=== PATIENT | male | born 1970 | race African-American/Black ===

== ENCOUNTER 2018-10-22 11:56 | Outpatient (CLI) | payer BC ==
--- NOTE | 2018-10-22 14:11 | RAD ---
SACRUM AND COCCYX: Date: 10/22/18 HISTORY: Coccyx pain. FINDINGS: No evidence of fracture. There is widening and increased lucency seen in a coccygeal vertebral segmen t of uncertain significance. Since there is unexplained pain at this region, recommend further evalua tion with CT or MRI to assess soft tissues at this location. IMPRESSION: Widening of an intervertebral space and bony irregularity in a coccygeal vertebra of uncertain signif icance. Recommend further evaluation with CT to better assess bones and soft tissues at this location . POS: OFF
== END 2018-10-22 11:57 | disposition home or self-care (01) ==
LOC: BICRAD 11:56
PROVIDERS: ATTEND Family Medicine
DX: M53.3 Sacrococcygeal disorders, not elsewhere classified (principal)
CPT/HCPCS: 72220

== ENCOUNTER 2018-11-07 13:29 | Outpatient (CLI) | payer BC ==
--- NOTE | 2018-11-07 14:51 | CT ---
CT lumbar spine and sacral noncontrast HISTORY: Coccygeal pain. Abnormal radiographs. COMPARISON: Radiographs from 10/22/2018. FINDINGS: There are 5 lumbar type vertebrae. Pedicles and pars interarticularis are intact. Discogeni c endplate changes at the L5-S1 level with endplate irregularity involving the adjacent superior and inferior endplates. Minimal disc bulges at each level. Mild osteophytosis of the facets. Mild wily noses of the left neural foramina at the L4-5 and L5-S1 levels and the right neural foramen at the L5-S1 level. No focal disc herniation. Between the first and second coccygeal segments, there is segmentation and separation by approximatel y 0.8 cm and irregularity of the adjacent endplates. Small amount of soft tissue/fluid density with minimal expansion. Subtle irregularity within the adjacent fat without a well-defined fluid collectio n. No aggressive osseous destruction is reliably demonstrated. IMPRESSION: CT confirms abnormality at the coccygeal 1-2 interspace. No definite fluid collection or aggressive osseous destruction, although there is some soft tissue prominence and endplate irregularity. Given that pain to this area is the original indicator, further evaluation is warranted to look for i nflammatory cause, possibly infection. Please consider MRI of the sacrum, with and without gadolinium contrast, for better characterization.
== END 2018-11-07 13:30 | disposition home or self-care (01) ==
LOC: BICCT 13:29
PROVIDERS: ATTEND Family Medicine
DX: M53.3 Sacrococcygeal disorders, not elsewhere classified (principal)
CPT/HCPCS: 72131

== ENCOUNTER 2018-12-03 14:32 | Outpatient (CLI) | payer BC ==
--- NOTE | 2018-12-03 16:36 | MRI ---
MRI lumbar spine noncontrast: HISTORY: Lumbar radiculopathy. Back pain times a few years. COMPARISON: None FINDINGS: Type I-type II Modic changes at L5-S1. Otherwise, appropriate T1 marrow signal intensity lumbar verte brae. No fracture. No significant STIR hyperintensity to suggest vertebral body edema or ligamentous injury Appropriate signal intensity of the paraspinal muscles and visualized solid organs Conus medullaris terminates at the L1-L2 disc space T12-L1:Adequate disc hydration. No significant central canal stenosis or neural foraminal narrowing L1-L2:Adequate disc hydration. No significant canal stenosis or neural foraminal narrowing L2-L3:Adequate disc hydration. No significant central canal stenosis or neural foraminal narrowing L3-L4:Adequate disc hydration. Minimal flattening the ventral thecal sac secondary to a broad-based d isc bulge. Minimal ligament flavum thickening and facet hypertrophy. No significant central canal stenosis or neural foraminal narrowing. L4-L5:Minimal disc desiccation without significant loss of disc space height. Generalized disc bulge abuts and flattens the ventral thecal sac. No significant central canal stenosis. Bilaterally, neural foramina are patent L5-S1:No significant loss of disc space height. Minimal disc desiccation. Generalized disc bulge abut s the thecal sac. Disc material abuts but does not obscure the traversing S1 nerve root. No significant central canal stenosis. There is bilateral facet hypertrophy. Moderate right and mild to moderate left neural foraminal narrowing. IMPRESSION: Degenerative changes lumbar spine as described above. No evidence of high-grade central canal stenosi s. Transcribed Date/Time: 12/03/2018 6:34 PM
--- NOTE | 2018-12-03 19:15 | MRI ---
MRI OF PELVIS PERFORMED WITH AND WITHOUT CONTRAST ENHANCEMENT: 12/03/18 HISTORY: Evaluation for sacrococcygeal abscess. COMPARISON: MRI study of 12/03/18. CT study of 11/07/18, both of the lumbar spine and a sacrum and coccyx plain catina m which was performed 10/22/18. The visualized intrapelvic contents appear unremarkable with some minimal sigmoid diverticulosis. No pelvic lymphadenopathy or mass. Modic type changes involving the inferior end plate of L5 at the L5-S1 level are noted. The coccyx region once again shows an area of widening between two of the coccygeal segments. This hidalgo s been seen on the plain film and CT study and this is a stable finding. There is minimal edema ge e in this region which appears mainly related to the soft tissue although there could be some minima l edema change associated with the bone at this level. I would favor that this is more likely reactiv e change than an osteomyelitis. There is no signs of any pelvic abscess. No inflammatory change withi n the soft tissues. IMPRESSION: Nonspecific widening to the distance between two of the coccygeal segments that is stable as compared to previous exams. There is some minimal edema change and enhancement associated with this. I would favor that this may just represent some reactive change possibly related to some mild instability. Th ere is no pelvic abscess and I would not favor that these changes are related to osteomyelitis althou gh a low grade indolent osteomyelitis is not totally excluded as a possibility. POS: MARCUS
== END 2018-12-03 14:33 | disposition home or self-care (01) ==
LOC: TBSIIMAG 14:32
PROVIDERS: ATTEND Anesthesiology Pain Medicine
DX: M47.26 Other spondylosis with radiculopathy, lumbar region (principal); M53.3 Sacrococcygeal disorders, not elsewhere classified
CPT/HCPCS: 72148; 72197

== ENCOUNTER 2019-09-29 07:58 | Outpatient (CLI) | payer BC ==
--- NOTE | 2019-09-29 08:45 | CT ---
CT ABDOMEN NONCONTRAST CT PELVIS NONCONTRAST: (Urolithiasis protocol) DATE: 09/29/2019 HISTORY: 49-year-old male with hematuria TECHNIQUE: IV injection of iodinated contrast media: None Oral contrast media: None FINDINGS: Other than for urolithiasis, the lack of IV and oral contrast limits the evaluation. Liver: No contour abnormalities. Spleen: No splenomegaly. Pancreas: No contour abnormalities. Adrenals: No mass. Kidneys: No nephrolithiasis or overt hydronephrosis. Ureters: No calculi. Bladder: No calculi. Abdominal aorta: No aneurysm. Small bowel: No dilation. Colon: No adjacent fat stranding. Appendix: No dilation or adjacent fat stranding. Free air: None Free fluid: None IMPRESSION: 1. No urolithiasis or obstructive uropathy 2. No acute findings, within the limitations of a noncontrast scan.
== END 2019-09-29 07:59 | disposition home or self-care (01) ==
LOC: CT 07:58
PROVIDERS: ATTEND Family Medicine
DX: R31.9 Hematuria, unspecified (principal)
CPT/HCPCS: 74176

== ENCOUNTER 2020-01-06 19:00 | Inpatient (IN) | payer BC, OTHER ==
[~2020-01-06 19:00] MED LIST: Iopamidol-370 76% 500 ML 1 ML ONE
[2020-01-06] MEDS ORDERED: Meclizine HCl 25 MG TAB ONE (19:49)
[2020-01-06] MEDS ORDERED: Diazepam 5 MG TAB ONE (19:53)
[2020-01-06 20:03] LABS: #Basophils 0.1 thou/uL (0.0-0.2); #Lymphocytes 3.4 thou/uL (1.20-3.40); #Monocytes 0.7 thou/uL (0.11-0.59); #Neutrophils 7.9 thou/uL (1.40-6.50); %Basophils 0.6 % (0.0-1.0); %Eosinophils 0.2 % (0.0-10.0); %Lymphocytes 28.1 % (21.0-51.0); %Monocytes 5.6 % (0.0-10.0); %Neutrophils 65.6 % (42.0-75.0); Mean Corpuscular HGB CONC 33.5 g/dL (32.0-36.0); Mean Corpuscular Hemoglobin 28.7 pg (27.0-31.0); Mean Corpuscular Volume 85.6 fL (78.0-98.0); Mean Platelet Volume 8.6 fL (7.4-10.4); Platelet Count 199 thou/uL (130-400); Red Blood Cell (RBC) Count 5.23 mill/uL (4.70-6.10); White Blood Cell (WBC) Count 12.1 thou/uL (4.8-10.8)
[2020-01-06 20:10] LABS: INR-International Normal Ratio 2.2; PTT 31.6 sec (22.9-36.1); Prothrombin Time 24.4 sec (12.0-14.7)
[2020-01-06 20:17] LABS: ALT (SGPT) 16 U/L (8-55); AST (SGOT) 19 U/L (5-34); Albumin 4.4 g/dL (3.5-5.0); Alkaline Phosphatase 43 U/L (40-110); Anion Gap 12 mmol/L (10-20); BUN (Urea Nitrogen) 16 mg/dL (8.9-20.6); Bilirubin, Total 0.5 mg/dL (0.2-1.2); Calc. Creatinine Clearance 0 mL/min (70-130); Carbon Dioxide 26 mmol/L (22-29); Chloride 105 mmol/L (98-107); Estimated GFR-MDRD 82; Globulin 3.7 g/dL (2.4-3.5); Glucose 131 mg/dL (70-105); Potassium 3.9 mmol/L (3.5-5.1); Protein, Total 8.1 g/dL (6.0-8.3); Sodium 139 mmol/L (136-145)
--- NOTE | 2020-01-06 21:08 | CT ---
Head CT without contrast: CT angiogram head CT angiogram neck: 01/06/2020 HISTORY: Peripheral vertigo, prior stroke TECHNIQUE: Axial CT imaging at 5 mm intervals from vertex through skull base without contrast. Then, axial CT imaging at 1.25 mm intervals obtained from the vertex through the lung apices with IV contrast using a CT angiogram protocol. Coronal and sagittal 3-D reformatted imaging obtained. FINDINGS: The visualized lung apices are unremarkable. The noncontrast enhanced head CT demonstrates no intracranial hemorrhage, midline shift, mass effect, or ventricular enlargement. The visualized paranasal sinuses and mastoid air cells appear well aerated. The retroantral fat, parapharyngeal fat, parotid glands, and submandibular glands appear grossly unre markable. Tonsillar pillars, epiglottis and preepiglottic fat, hyoid bone, thyroid cartilage, cricoid cartilage, and thyroid gland appear grossly unremarkable. Body habitus limits assessment at t he thoracic inlet. Origin of the innominate artery grossly unremarkable as is the origin of the right subclavian and right common carotid artery. The origin of the left common carotid artery and le ft subclavian artery is limited on the basis of artifact. Artifact limits assessment of the bilateral vertebral artery origins. Bilateral vertebral arteries are patent. On the basis of NASCET c riteria there is no hemodynamically significant stenosis involving the internal carotid artery or the common carotid artery on either side. The basilar artery and its branches appear patent with no saccular aneurysm, high-grade stenosis, or vascular occlusion involving the posterior circulation. The M1 segment, the A1 segment, the MCA bifurcation, the distal MCA branches, and the distal LETICIA bran ches appear grossly unremarkable. No saccular aneurysm, high-grade stenosis, or vascular occlusion is seen involving the anterior circulation. No lymphadenopathy is noted within the neck. Review of the osseous structures demonstrates no worrisome lytic or blastic bone lesions. IMPRESSION: No acute findings are noted on noncontrast enhanced head CT, CT angiogram of the head, or CT angiogram of the neck.
[2020-01-06] MEDS ORDERED: Ondansetron ODT 4 MG TAB ONE (22:02)
[2020-01-06] MEDS ORDERED: Aspirin Chewable 81 MG TAB ONE (22:02)
[2020-01-06 23:20] LABS: Troponin I Less than 0.010 ng/mL (< 0.028)
[2020-01-06] MEDS ORDERED: Guaifenesin DM 100-10/5 ML UDCUP PO PRN (23:22)
[2020-01-06] MEDS ORDERED: Ondansetron PF 4 MG/2 ML Vial IVP PRN (23:22)
[2020-01-06] MEDS ORDERED: Promethazine HCl 12.5 MG in Sodium Chloride 0.9% 50 ML IVPB PRN (23:22)
[2020-01-06] MEDS ORDERED: hydrALAZINE 20 MG/ML VIAL SLOW IVP PRN (23:24)
[2020-01-06] MEDS ORDERED: Labetalol HCl 100 MG/20 ML VIAL SLOW IVP PRN (23:24)
--- NOTE | 2020-01-06 23:27 | PDOC.HHP ---
Hospitalist HPI - History of Present Illness Vertigo History of Present Illness: Patient is a 49 year old male with PMH pulmonary embolism in on chronic coumadin, CVA 7 years ago who presents to ED for 1 day of vertigo and nystagmus. At work today, he leaned his head back in chair and developed continuous vertigo which has not abated since, this was at 11 AM, dizziness is described as a sense of rotation and is provoked by tilting his head backwards but does not completely resolve when sitting still. No exacerbation of dizziness with turning head to the left or right. Patient states that this does feel like his prior peripheral vertigo. Patient states sore throat in association but had a negative rapid strep at the outside hospital. He went to urgent care and was referred to ED, here he was noted to have leftward nystagmus which drastically worsened when patient was in CT scanner. CT and CTA head unremarkable. Patient given zofran and meclizine with partial improvement, also got valium and ASA. Patient has a history of CVA 7 years ago, presented with facial droop which improved over se veral weeks and does not have residual deficits. He does not take an aspirin or a statin, but does take coumadin for history of PE in , INR 2.2 here. Patient to be admitted for CVA rule out. Hospitalist ROS - Review of Systems Constitutional: denies: fever, chills, sweats, weakness, malaise, other Eyes: denies: pain, vision change, conjunctivae inflammation, eyelid inflammation, redness, other ENT: denies: ear pain, ear discharge, nose pain, nose discharge, nose congestion, mouth pain, mouth swelling, throat pain, throat swelling, other Respiratory: denies: cough, dry, shortness of breath, hemoptysis, SOB with excertion, pleuritic pain, sputum, wheezing, other Cardiovascular: denies: chest pain, palpitations, orthopnea, paroxysmal noc. dyspnea, edema, light headedness, other Gastrointestinal: denies: nausea, vomiting, abdominal pain, diarrhea, constipation, melena, hematochezia, other Genitourinary: denies: dysuria, frequency, incontinence, hematuria, retention, other Musculoskeletal: denies: neck pain, shoulder pain, arm pain, back pain, hand pain, leg pain, foot pain, other Skin: denies: rash, lesions, dusty, bruising, other Neurological: reports: other (vertigo). denies: weakness, numbness, incoordination, change in speech, confusion, seizures All other systems reviewed; all pertinent +/- noted in HPI/Subj - Medication Medications: coumadin, see ED documents for dosing and timing Hospitalist History - Past Medical History Other Medical History: CVA, PE, DVT - Past Surgical History Other Surgical History: R knee and hand and ankle surgeries - Family History Family History: reports: no pertinent history - Social History Alcohol: reports: None Drugs: reports: none - Exam General Appearance: NAD, awake alert Eye: PERRL, anicteric sclera ENT: normocephalic atraumatic, no oropharyngeal lesions, moist mucosa Neck: supple, symmetric, no JVD, no thyromegaly, no lymphadenopathy, no carotid bruit Heart: RRR, no murmur, no gallops, no rubs, normal peripheral pulses Respiratory: CTAB, no wheezes, no rales, no ronchi, normal chest expansion, no tachypnea, normal percussion Gastrointestinal: soft, non-tender, non-distended, normal bowel sounds, no palpable masses, no hepatomegaly, no splenomegaly, no bruit Extremities: no cyanosis, no clubbing, no edema Skin: normal turgor, no lesions, no rashes Neurological: normal sensation to touch, no weakness, no focal deficits, no new deficit Neurological - other findings: nystagmus w/ leftward gaze Musculoskeletal: normal tone, normal strength, no muscle wasting Psychiatric: normal affect, normal behavior, A&O x 3 Hospitalist Results - Labs Result Diagrams: 01/06/20 19:41 01/06/20 19:41 Lab results: WBC 12.1 thou/uL (4.8-10.8) H 01/06/20 19:41 Hgb 15.0 g/dL (14.0-18.0) 01/06/20 19:41 Hct 44.8 % (42.0-52.0) 01/06/20 19:41 MCV 85.6 fL (78.0-98.0) 01/06/20 19:41 Plt Count 199 thou/uL (130-400) 01/06/20 19:41 Neutrophils % 65.6 % (42.0-75.0) 01/06/20 19:41 Sodium 139 mmol/L (136-145) 01/06/20 19:41 Potassium 3.9 mmol/L (3.5-5.1) 01/06/20 19:41 Chloride 105 mmol/L (98-107) 01/06/20 19:41 Carbon Dioxide 26 mmol/L (22-29) 01/06/20 19:41 BUN 16 mg/dL (8.9-20.6) 01/06/20 19:41 Creatinine 1.14 mg/dL (0.7-1.3) 01/06/20 19:41 Glucose 131 mg/dL (70-105) H 01/06/20 19:41 Calcium 9.0 mg/dL (7.8-10.44) 01/06/20 19:41 Total Bilirubin 0.5 mg/dL (0.2-1.2) 01/06/20 19:41 AST 19 U/L (5-34) 01/06/20 19:41 ALT 16 U/L (8-55) 01/06/20 19:41 Alkaline Phosphatase 43 U/L (40-110) 01/06/20 19:41 Troponin I Less than 0.010 ng/mL (< 0.028) 01/06/20 22:49 Serum Total Protein 8.1 g/dL (6.0-8.3) 01/06/20 19:41 Albumin 4.4 g/dL (3.5-5.0) 01/06/20 19:41 Additional comment: VITAL SIGNS Wed Jan 06, 2020 23:07 NAYLA Colón Kristin BP: 172/95 Pulse: 98 Resp: 16 Temp: 98.9 (Oral) Pain: 0 O2 sat: 100 on (Room Air) Time: 01/06/2020 23:07. - EKG Interpretation EK BPM, NSR, no acute ST changes or AVB Hospitalist H&P A/P - Plan Plan: Patient is a 49 year old male with PMH pulmonary embolism in on chronic coumadin, CVA 7 years ago who presents to ED for 1 day of vertigo and nystagmus. # nystagmus # history of CVA continuous vertigo x 1 day, positional, leftward nystagmus and one time rightward nystagmus observed on repeat physical exams. in ED, CT and CTA head unremarkable. Patient given zofran, meclizine, valium and ASA w/ partial improvement, he has a history of CVA 7 years ago (facial droop as symptom, no residual deficits). He does not take an aspirin or a statin, but does take coumadin for history of PE in , INR 2.2 here. Patient to be admitted for CVA rule out. - admit to stroke unit - stroke workup including MRI brain, rehab consult, monitor for arrhythmia on telemetry, echo ordered, lipid panel - continue meclizine, phenergan, zofran for symptom control - ASA/statin - may be able to do outpatient vestibular rehab, follow OT consult/rehab consult # history of PE/DVT - continue coumadin, daily INR, pharmacy consult for dosing # HTN - permissive HTN for now, monitor BP DVt/GI ppx
[2020-01-06] MEDS ORDERED: Electrolyte Replacement Protoc 1 EACH EACH FS SCH (23:30)
[2020-01-07 01:27] VITALS: BMI 35.7
[2020-01-07 02:27] LABS: Troponin I 0.012 ng/mL (< 0.028)
[2020-01-07 04:44] LABS: #Basophils 0.1 thou/uL (0.0-0.2); #Lymphocytes 3.4 thou/uL (1.20-3.40); #Monocytes 0.5 thou/uL (0.11-0.59); #Neutrophils 4.4 thou/uL (1.40-6.50); %Basophils 0.7 % (0.0-1.0); %Eosinophils 0.2 % (0.0-10.0); %Lymphocytes 40.7 % (21.0-51.0); %Monocytes 6.4 % (0.0-10.0); Hemoglobin 15.2 g/dL (14.0-18.0); Mean Corpuscular HGB CONC 32.9 g/dL (32.0-36.0); Mean Corpuscular Hemoglobin 28.5 pg (27.0-31.0); Mean Corpuscular Volume 86.4 fL (78.0-98.0); Mean Platelet Volume 8.7 fL (7.4-10.4); Platelet Count 184 thou/uL (130-400); RBC Distribution Width 13.1 % (11.5-14.5); Red Blood Cell (RBC) Count 5.34 mill/uL (4.70-6.10); White Blood Cell (WBC) Count 8.5 thou/uL (4.8-10.8)
[2020-01-07 05:01] LABS: INR-International Normal Ratio 2.2; Prothrombin Time 24.2 sec (12.0-14.7)
[2020-01-07 05:10] LABS: Anion Gap 14 mmol/L (10-20); BUN (Urea Nitrogen) 14 mg/dL (8.9-20.6); Calc. Creatinine Clearance 206 mL/min (70-130); Carbon Dioxide 24 mmol/L (22-29); Cardiac Risk 4.4 (Less than 4.5); Chloride 105 mmol/L (98-107); Cholesterol 221 mg/dl (< 200 Desired); Estimated GFR-MDRD Greater than 90; Glucose 111 mg/dL (70-105); HDL Cholesterol 50 mg/dL (>60 Neg Risk); LDL Cholesterol, Calculated 156 mg/dL; Magnesium 1.9 mg/dL (1.6-2.6); Sodium 139 mmol/L (136-145); Triglycerides 74 mg/dL (Less than 150)
[2020-01-07] MEDS ORDERED: Magnesium 2 GM/50 ML 2 GM in Premix Bag 1 BAG IVPB SCH (06:00)
--- NOTE | 2020-01-07 09:09 | MRI ---
MRI BRAIN WITHOUT CONTRAST: HISTORY: Vertigo, dizziness COMPARISON: 07/17/2029 CORRELATION: CT scan from 01/06/2020. FINDINGS: No restricted diffusion is seen. The ventricular size is appropriate and the basilar cisterns are pat ent. No evidence of acute infarct, hemorrhage, midline shift or abnormal extra-axial fluid collections is seen. The visualized paranasal sinuses and mastoid air cells are well-aerated. IMPRESSION: No evidence of acute intracranial process.
[2020-01-07] MEDS: Famotidine 20 MG TAB PO SCH ×2 (09:27→21:07)
[2020-01-07] MEDS: Aspirin 81 mg Enteric Coated Tablet PO SCH (09:27)
--- NOTE | 2020-01-07 13:21 | CON ---
NEUROLOGY CONSULTATION DATE OF CONSULTATION: 01/07/2020 REASON FOR CONSULTATION: TIA/vertigo. HISTORY OF PRESENT ILLNESS: Mr. Ramos is a 49-year-old male with medical history significant for pulmonary embolism in 1989, on chronic Coumadin therapy, with prior CVA 7 years ago, presented to the emergency room with 1-day history of vertigo and nystagmus. Per the patient, he was at work, and he leaned his head back in the chair and felt as if his head is tilted backwards and unable to resolve the dizziness. The patient did not have any feeling like this before in his life He went to the Urgent Care to get a stress test, which was negative at the outside hospital. Then, he was referred to the emergency room where he was noted to have nystagmus on the left lateral gaze, which worsened and the dizziness worsened when the patient was in the CT scanner. CT of the head was done, which was unremarkable for acute intracranial pathology. CT of the head and neck was also unremarkable for hemodynamically significant stenosis. He was given Zofran, meclizine, with partial improvement, and also got aspirin and Valium. He was admitted for stroke rule out. The patient denies focal weakness, focal paresthesias, problems with speech or swallowing, shortness of breath, nausea, vomiting, dysuria, neck pain, or headache associated with the episode. Then, his symptoms improved with meclizine. REVIEW OF SYSTEMS: All 14 systems were reviewed and were negative except pertinent positives mentioned in the HPI. MEDICATION: Coumadin. PAST MEDICAL HISTORY: Prior CVA with no residual side effects. Pulmonary embolism in 1989 and on chronic Coumadin for DVT. PAST SURGICAL HISTORY: Right knee and right ankle surgeries. FAMILY HISTORY: No family history of stroke. SOCIAL HISTORY: Denies smoking, alcohol, or illegal drug use. ALLERGIES: NKDA - Exam VITAL SIGNS: Blood pressure 172/95, pulse 98, respiratory rate 16 General Appearance: NAD, awake alert Eye: PERRL, anicteric sclera ENT: normocephalic atraumatic, no oropharyngeal lesions, moist mucosa Neck: supple, symmetric, no JVD, no thyromegaly, no lymphadenopathy, no carotid bruit Heart: RRR, no murmur, no gallops, no rubs, normal peripheral pulses Respiratory: CTAB, no wheezes, no rales, no ronchi, normal chest expansion, no tachypnea, normal percussion Gastrointestinal: soft, non-tender, non-distended, normal bowel sounds, no palpable masses, no hepatomegaly, no splenomegaly, no bruit Extremities: no cyanosis, no clubbing, no edema Skin: normal turgor, no lesions, no rashes Neurological: Mental status, the patient is alert and oriented to person, place, and time. Recent and remote memory intact. Fund of knowledge is appropriate. Speech is clear. Cranial nerves 2 through 12 intact. Motor, muscle tone and bulk are normal. Strength 5/5 bilaterally. Sensory intact. Cerebellar, finger-nose testing intact. Gait deferred due to the patient's safety reasons. . DATA REVIEWED: I reviewed the labs, which was significant for hyperglycemia 131. EKG showed normal. I reviewed the CT scan, which was negative for acute intracranial pathology. 01/06/20 19:41 Lab results: WBC 12.1 thou/uL (4.8-10.8) H 01/06/20 19:41 Hgb 15.0 g/dL (14.0-18.0) 01/06/20 19:41 Hct 44.8 % (42.0-52.0) 01/06/20 19:41 MCV 85.6 fL (78.0-98.0) 01/06/20 19:41 Plt Count 199 thou/uL (130-400) 01/06/20 19:41 Neutrophils % 65.6 % (42.0-75.0) 01/06/20 19:41 Sodium 139 mmol/L (136-145) 01/06/20 19:41 Potassium 3.9 mmol/L (3.5-5.1) 01/06/20 19:41 Chloride 105 mmol/L (98-107) 01/06/20 19:41 Carbon Dioxide 26 mmol/L (22-29) 01/06/20 19:41 BUN 16 mg/dL (8.9-20.6) 01/06/20 19:41 Creatinine 1.14 mg/dL (0.7-1.3) 01/06/20 19:41 Glucose 131 mg/dL (70-105) H 01/06/20 19:41 Calcium 9.0 mg/dL (7.8-10.44) 01/06/20 19:41 Total Bilirubin 0.5 mg/dL (0.2-1.2) 01/06/20 19:41 AST 19 U/L (5-34) 01/06/20 19:41 ALT 16 U/L (8-55) 01/06/20 19:41 Alkaline Phosphatase 43 U/L (40-110) 01/06/20 19:41 Troponin I Less than 0.010 ng/mL (< 0.028) 01/06/20 22:49 Serum Total Protein 8.1 g/dL (6.0-8.3) 01/06/20 19:41 Albumin 4.4 g/dL (3.5-5.0) 01/06/20 19:41 ASSESSMENT AND PLAN: 49 year old with dizziness. CT of the head and neck was also unremarkable. MRI of the brain reviewed, which was negative for acute intracranial pathology most likely vertigo. However, TIA cannot be completely ruled out because of the risk factors. Continue aspirin and high-intensity statin for secondary stroke prevention. Check hemoglobin A1c, fasting lipid panel, and TSH in telemetry. 2D echo to evaluate for left ventricular ejection fraction. Consider vestibular PT/OT/Speech. We will continue Coumadin and daily INR. Strict control of blood pressure and blood glucose. Neuro checks every 4 hours. Continue home medications. Continue medical management per primary team, PT/OT/Speech. Consider vestibular PT as outpatient if the condition persists. We will continue to follow. Plan discussed with the patient, and the nursing staff. Thank you for the consult. Job ID: [id number] MTDD
[2020-01-07] MEDS ORDERED: Warfarin Sodium 10 MG TAB PO SCH (20:00)
[2020-01-07] MEDS ORDERED: Atorvastatin Calcium 40 MG TAB PO SCH (21:00)
[2020-01-07] MEDS ORDERED: Enoxaparin Sodium 40 MG/0.4 ML SYRINGE SC SCH (21:00)
--- NOTE | 2020-01-07 21:21 | PDOC.HOSPP ---
- Subjective Encounter Date: 01/07/20 Encounter Time: 13:10 Subjective: Patient was seen and examined in bed. Dizziness is improved but still lingering. Denies any headache chest pain shortness of breath. - Objective Vital Signs & Weight: Vital Signs (12 hours) Temp Pulse Resp BP BP BP Pulse Ox 01/07/20 15:24 98.1 F 67 16 166/100 H 97 01/07/20 11:32 97.8 F 65 16 158/96 H 97 01/07/20 10:45 154/113 H 167/106 H Weight Weight 333 lb 12.8 oz Result Diagrams: 01/07/20 04:34 01/07/20 04:34 Hospitalist ROS - Medication Medications: Active Medications Generic Name Dose Route Start Last Admin Trade Name Freq PRN Reason Stop Dose Admin Aspirin 81 mg 01/07/20 09:00 01/07/20 09:27 Aspirin 81 Mg Enteric Coated Tablet PO 81 mg DAILY JEANNE Administration Atorvastatin Calcium 40 mg 01/07/20 21:00 01/07/20 21:07 Atorvastatin Calcium 40 Mg Tab PO 40 mg HS JEANNE Administration Famotidine 20 mg 01/07/20 09:00 01/07/20 21:07 Famotidine 20 Mg Tab PO 20 mg BID JEANNE Administration Sodium Chloride 10 ml 01/06/20 23:24 01/07/20 21:07 Flush - Normal Saline 10 Ml Syringe IVF 10 ml PRN PRN Administration Saline Flush Warfarin Sodium 10 mg 01/07/20 20:00 01/07/20 21:06 Warfarin Sodium 10 Mg Tab PO 01/07/20 22:00 10 mg 2000 JEANNE Administration - Exam Heart - other findings: S1-S2 present and normal. No murmurs gallops or rubs. Respiratory - other findings: Air entry adequate bilaterally. No rhonchi or rales. Gastrointestinal - other findings: Soft, nontender, bowel sounds present. No organomegaly Extremities - other findings: No edema Hosp A/P - Plan This is a 49-year-old male patient with a history of chronic pulmonary embolism on Coumadin who is an admission on account of progressive right eye ago. Vitiligo Concerning for possible stroke. CT scan and MRI of the brain revealed no acute events No lesions noted on MRI Neurology consultprescribe symptomatic treatment for vertigo and physical security manager apy on discharge. Continue on meclizine and promethazine PT OT on board. TIA Cannot be excluded given history We will continue stroke prophylaxis with aspirin and atorvastatin Hypertension Blood pressure is significantly above 150 systolic. Initial permissive hypertension on account of possible stroke We will start low-dose amlodipine Possible aortic aneurysm. Echocardiogram revealed dilated aortic sinus CT scan for further evaluation suggested Cardiology consulted in a.m. for further evaluation. Pulmonary evaluation INR 2.2 Continue on warfarin. VTE prophylaxistherapeutic on warfarin
[2020-01-08 05:09] LABS: INR-International Normal Ratio 2.1; Prothrombin Time 23.2 sec (12.0-14.7)
[2020-01-08 05:20] LABS: Anion Gap 14 mmol/L (10-20); BUN (Urea Nitrogen) 15 mg/dL (8.9-20.6); Calc. Creatinine Clearance 187 mL/min (70-130); Calcium 8.7 mg/dL (7.8-10.44); Carbon Dioxide 24 mmol/L (22-29); Chloride 106 mmol/L (98-107); Estimated GFR-MDRD Greater than 90; Glucose 103 mg/dL (70-105); Potassium 3.9 mmol/L (3.5-5.1); Sodium 140 mmol/L (136-145)
[2020-01-08] MEDS: Acetaminophen 325 MG TAB PO PRN (08:32)
[2020-01-08] MEDS: Aspirin 81 mg Enteric Coated Tablet PO SCH (08:32)
[2020-01-08] MEDS: Amlodipine 5 MG TAB PO SCH (08:33)
[2020-01-08] MEDS: Meclizine HCl 25 MG TAB PO PRN ×2 (08:33→20:13)
[2020-01-08] MEDS: Famotidine 20 MG TAB PO SCH ×2 (08:34→20:14)
[2020-01-08] MEDS ORDERED: Amlodipine 5 MG TAB PO SCH (09:00)
[2020-01-08] MEDS ORDERED: Iopamidol-370 76% 500 ML 1 ML ONE (10:04)
[2020-01-08 12:46] LABS: SARS-CoV-2 MS2 Positive; SARS-CoV-2 N Gene Negative; SARS-CoV-2 S Gene Negative; SARS-CoV-2 by NAA Not Detected (NotDetected); SARS-CoV-2 orf1ab Negative
--- NOTE | 2020-01-08 12:53 | PDOC.NEUPN ---
- Subjective Encounter Date: 01/08/20 Subjective: Patient feels better. Dizziness improved today. - Objective Vital Signs & Weight: Vital Signs (12 hours) Temp Pulse Resp BP BP Pulse Ox 01/08/20 12:16 152/106 H 01/08/20 11:59 97.7 F 69 16 217/139 H 95 01/08/20 09:42 163/108 H 01/08/20 08:33 64 168/120 H 01/08/20 08:00 96 01/08/20 07:50 99 F 64 12 168/120 H 96 01/08/20 04:30 97.7 F 69 13 149/108 H 94 L Weight Weight 333 lb 12.8 oz Result Diagrams: 01/07/20 04:34 01/08/20 04:48 Radiology Reviewed by me: Yes EKG Reviewed by me: Yes ROS - Review of Systems Constitutional: denies: fever, chills, sweats, weakness, malaise, other Eyes: denies: pain, vision change, conjunctivae inflammation, eyelid inflammation, redness, other ENT: denies: ear pain, ear discharge, nose pain, nose discharge, nose congestion, mouth pain, mouth swelling, throat pain, throat swelling, other Respiratory: denies: cough, dry, shortness of breath, hemoptysis, SOB with excertion, pleuritic pain, sputum, wheezing, other Cardiovascular: denies: no pertinent history, AFIB, CAD, CHF, HTN, LA, Syncope, Hyperlipidemia, Mitral valve stenosis, Aortic stenosis, Valve insufficiency, Pulmonary hypertension, Other Gastrointestinal: denies: nausea, vomiting, abdominal pain, diarrhea, constipation, melena, hematochezia, other Genitourinary: denies: dysuria, frequency, incontinence, hematuria, retention, other Musculoskeletal: denies: neck pain, shoulder pain, arm pain, back pain, hand pain, leg pain, foot pain, other Skin: denies: rash, lesions, dusty, bruising, other Neurological: denies: weakness, numbness, incoordination, change in speech, confusion, seizures, other - Medication Medications: Active Medications Generic Name Dose Route Start Last Admin Trade Name Freq PRN Reason Stop Dose Admin Acetaminophen 650 mg 01/06/20 23:22 01/08/20 08:32 Acetaminophen 325 Mg Tab PO 650 mg Q4H PRN Administration Headache/Fever/Mild Pain (1-3) Amlodipine Besylate 5 mg 01/08/20 09:00 01/08/20 08:33 Amlodipine 5 Mg Tab PO 5 mg DAILY JEANNE Administration Aspirin 81 mg 01/07/20 09:00 01/08/20 08:32 Aspirin 81 Mg Enteric Coated Tablet PO 81 mg DAILY JEANNE Administration Atorvastatin Calcium 40 mg 01/07/20 21:00 01/07/20 21:07 Atorvastatin Calcium 40 Mg Tab PO 40 mg HS JEANNE Administration Famotidine 20 mg 01/07/20 09:00 01/08/20 08:34 Famotidine 20 Mg Tab PO Not Given BID JEANNE Meclizine HCl 25 mg 01/06/20 23:23 01/08/20 08:33 Meclizine Hcl 25 Mg Tab PO 25 mg Q8H PRN Administration vertigo Sodium Chloride 10 ml 01/06/20 23:24 01/07/20 21:07 Flush - Normal Saline 10 Ml Syringe IVF 10 ml PRN PRN Administration Saline Flush - Exam General Appearance: awake alert Eye: PERRL ENT: normocephalic atraumatic Neck: supple Respiratory: CTAB Cardiovascular: RRR Gastrointestinal: soft Extremities: no cyanosis Skin: normal turgor Neurological: CN's grossly intact, normal sensation to touch, no weakness, no focal deficits Musculoskeletal: normal tone, normal strength, no muscle wasting PSYCH: normal affect, normal behavior, A&O x 3 Results - Labs Result Diagrams: 01/07/20 04:34 01/08/20 04:48 Lab results: WBC 8.5 thou/uL (4.8-10.8) 01/07/20 04:34 Hgb 15.2 g/dL (14.0-18.0) 01/07/20 04:34 Hct 46.1 % (42.0-52.0) 01/07/20 04:34 MCV 86.4 fL (78.0-98.0) 01/07/20 04:34 Plt Count 184 thou/uL (130-400) 01/07/20 04:34 Neutrophils % 52.0 % (42.0-75.0) 01/07/20 04:34 Sodium 140 mmol/L (136-145) 01/08/20 04:48 Potassium 3.9 mmol/L (3.5-5.1) 01/08/20 04:48 Chloride 106 mmol/L (98-107) 01/08/20 04:48 Carbon Dioxide 24 mmol/L (22-29) 01/08/20 04:48 BUN 15 mg/dL (8.9-20.6) 01/08/20 04:48 Creatinine 1.01 mg/dL (0.7-1.3) 01/08/20 04:48 Glucose 103 mg/dL (70-105) 01/08/20 04:48 Calcium 8.7 mg/dL (7.8-10.44) 01/08/20 04:48 Total Bilirubin 0.5 mg/dL (0.2-1.2) 01/06/20 19:41 AST 19 U/L (5-34) 01/06/20 19:41 ALT 16 U/L (8-55) 01/06/20 19:41 Alkaline Phosphatase 43 U/L (40-110) 01/06/20 19:41 Troponin I 0.012 ng/mL (< 0.028) 01/07/20 01:54 Serum Total Protein 8.1 g/dL (6.0-8.3) 01/06/20 19:41 Albumin 4.4 g/dL (3.5-5.0) 01/06/20 19:41 - Radiology Interpretation MRI - head Additional Comment: Negative for acute intracranial process. PN A/P (1) Vertigo Code(s): R42 - DIZZINESS AND GIDDINESS Status: Acute (2) TIA (transient ischemic attack) Code(s): G45.9 - TRANSIENT CEREBRAL ISCHEMIC ATTACK, UNSPECIFIED Status: Acute (3) History of pulmonary embolism Code(s): Z86.711 - PERSONAL HISTORY OF PULMONARY EMBOLISM Status: Acute - Plan Daily Plan: PT/OT, speech therapy, out of bed/ambulate 49 year old with history significant for PE consulted for acute onset diozziness which is now improved with meclizine. Most likely vertigo. MRI of the brain r reviewed and was negative for acute intracranial process. Continue symptomatic treatment for vertigo and physical therapy on discharge. Continue on meclizine and promethazine Vestibular PT PT /OT on board. Consider ENT consult as outpatient. Continue stroke prophylaxis with aspirin and atorvastatin because of risk factors. 2 D Echocardiogram revealed dilated aortic sinus. Cardiology on board. Continue home medications. Continue medical management per primary team. Case discussed with the patient, and during MDR rounds.
--- NOTE | 2020-01-08 15:46 | CT ---
CT CHEST ANGIOGRAM WITH IV CONTRAST AND 3-D POSTPROCESSING: HISTORY:Dilated aortic root, Chest pain and shortness of breath FINDINGS: The thoracic aorta is well opacified without intimal flap to suggest dissection. The aortic measurements on the coronal oblique CT angiographic images are as follows: At aortic annulus: 2.6 cm At the aortic sinuses level: 4.9 cm At sinotubular junction: 3.5 cm Mid ascending aorta: 3.5 cm High ascending aorta: 3.7 cm The AP dimensions on the axial images at the level of the main pulmonary artery are as follows: Ascending thoracic aorta: 3.6 cm Descending thoracic aorta: 3.1 cm. No pleural or pericardial effusions are seen. No pneumothoraces, focal areas of consolidation or lung nodules are noted. There are dependent change s at the lung bases. No osteolytic or osteoblastic lesions are seen. Upper abdominal tomograms demonstrate changes of fatty infiltration of the liver. IMPRESSION: Thoracic aortic measurements as above.
[2020-01-08] MEDS ORDERED: Hydrochlorothiazide 25 MG TAB PO SCH (16:15)
[2020-01-08] MEDS ORDERED: Warfarin Sodium 10 MG TAB PO SCH (17:00)
[2020-01-08] MEDS: Metoprolol Tartrate 50 MG TAB PO SCH (20:14)
[2020-01-08] MEDS ORDERED: Atorvastatin Calcium 40 MG TAB PO SCH (21:00)
--- NOTE | 2020-01-08 21:22 | CON ---
DATE OF CONSULTATION: HISTORY OF PRESENT ILLNESS: Con Ramos is a 49-year-old black male who was admitted with acute onset of vertigo. He has been treated with meclizine with improvement in his symptoms. Routine echocardiogram revealed ejection fraction of 50% to 55%, mild mitral and tricuspid regurgitation. He had dilatation of the aortic root at 4.7 cm. Mr. Ramos denies any significant chest discomfort or shortness of breath. He does state that he will have palpitations lasting a few seconds. This will occur almost daily, although he is not certain for how long he has had this. He had one episode here that has been recorded on the monitor. PAST MEDICAL HISTORY: History of DVT and pulmonary embolism in 1992. He has been on Coumadin since that time. 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 He is uncertain of what that is. He has been on warfarin since 1992. No history of hypertension. He does have hypercholesterolemia. Hypertension. No history of diabetes. MEDICATIONS: 1. Warfarin 10 mg daily. 2. Atorvastatin 40 at bedtime. 3. Aspirin 81 daily. ALLERGIES: NONE. PAST SURGICAL HISTORY: Right knee and hand and ankle surgeries. SOCIAL HISTORY: He does not smoke or drink. FAMILY HISTORY: Pulmonary embolism. REVIEW OF SYSTEMS: A 10-point review of systems is otherwise unremarkable. PHYSICAL EXAMINATION: VITAL SIGNS: Blood pressure 152/106. HEENT: PERRL. NECK: Supple. CHEST: Clear. CARDIAC: S1 and S2 normal without any S3, S4, or murmurs. Carotid upstrokes normal without bruits. ABDOMEN: Normal bowel sounds without tenderness or organomegaly. EXTREMITIES: Revealed no clubbing, cyanosis, or edema. NEUROLOGIC: Grossly intact. SKIN: Warm and dry. LABORATORY DATA: EKG reveals normal sinus rhythm with nonspecific T-wave changes. Monitor strip show paroxysmal atrial tachycardia with a rate of approximately 140 per minute at the time that he was feeling his palpitations. CBC is unremarkable. Sodium 140, potassium 3.9, chloride 106, carbon dioxide 24, BUN 15, and creatinine 1.01. Cholesterol 221, triglycerides 74, HDL 50, and LDL 156. Troponin I's are normal. TSH in August 2019 was normal. IMPRESSION: 1. Vertigo with acute labyrinthitis. 2. Paroxysmal atrial tachycardia. 3. Hypertension, poorly controlled. 4. Hypercholesterolemia, poorly controlled. 5. History of pulmonary embolism, on chronic warfarin therapy. PLAN: Chest CT will be obtained to further evaluate his thoracic aorta with the dilated aortic root. I will start him on a beta-lisa for better blood pressure control as well as hopefully suppressing his paroxysmal atrial tachycardia episodes. Cholesterol is poorly controlled. I will increase his atorvastatin to 80 mg and he probably also need to have his second agent such as Zetia added. Job ID: [id number] [facility]
--- NOTE | 2020-01-09 00:44 | PDOC.HOSPP ---
- Subjective Encounter Date: 01/08/20 Subjective: Patient was seen and examined in bed. He was in no acute distress. Lentigo improved Denies any chest pain or shortness of breath Paroxysmal atrial tachycardia noted on monitor - Objective Vital Signs & Weight: Vital Signs (12 hours) Temp Pulse Resp BP Pulse Ox 01/09/20 00:07 98.0 F 60 18 121/77 97 01/08/20 21:05 97.7 F 68 18 154/103 H 96 01/08/20 17:43 71 156/106 H 01/08/20 15:04 98.3 F 63 14 143/100 H 96 Weight Weight 333 lb 12.8 oz I&O: 01/07/20 01/08/20 01/09/20 06:59 06:59 06:59 Intake Total 875 Balance 875 Result Diagrams: 01/07/20 04:34 01/08/20 04:48 Hospitalist ROS - Medication Medications: Active Medications Generic Name Dose Route Start Last Admin Trade Name Freq PRN Reason Stop Dose Admin Acetaminophen 650 mg 01/06/20 23:22 01/08/20 08:32 Acetaminophen 325 Mg Tab PO 650 mg Q4H PRN Administration Headache/Fever/Mild Pain (1-3) Amlodipine Besylate 5 mg 01/08/20 09:00 01/08/20 08:33 Amlodipine 5 Mg Tab PO 5 mg DAILY JEANNE Administration Aspirin 81 mg 01/07/20 09:00 01/08/20 08:32 Aspirin 81 Mg Enteric Coated Tablet PO 81 mg DAILY JEANNE Administration Atorvastatin Calcium 80 mg 01/08/20 21:00 01/08/20 20:13 Atorvastatin Calcium 40 Mg Tab PO 80 mg HS JEANNE Administration Famotidine 20 mg 01/07/20 09:00 01/08/20 20:14 Famotidine 20 Mg Tab PO Not Given BID JEANNE Meclizine HCl 25 mg 01/06/20 23:23 01/08/20 20:13 Meclizine Hcl 25 Mg Tab PO 25 mg Q8H PRN Administration vertigo Metoprolol Tartrate 50 mg 01/08/20 21:00 01/08/20 20:14 Metoprolol Tartrate 50 Mg Tab PO 50 mg BID JEANNE Administration Sodium Chloride 10 ml 01/06/20 23:24 01/08/20 20:13 Flush - Normal Saline 10 Ml Syringe IVF 10 ml PRN PRN Administration Saline Flush Warfarin Sodium 10 mg 01/08/20 17:00 01/08/20 16:28 Warfarin Sodium 10 Mg Tab PO 10 mg DAILY@1700 [facility] Administration - Exam General - other findings: Patient in bed, no acute distress. Heart - other findings: S1-S2 present and normal. No murmurs gallops or rubs Respiratory - other findings: Entry adequate bilaterally Gastrointestinal - other findings: Abdomen soft, tender no rebound tenderness or guarding. Bowel sounds Extremities: no edema Hosp A/P - Plan This is a 49-year-old male patient with a history of chronic pulmonary embolism on Coumadin who is an admission on account of progressive lentigo. On admission echocardiogram noted possible aortic aneurysm. He is therefore going undergoing further evaluation with CT and cardiology assessment. Likely discharge tomorrow Vitiligo Concerning for possible stroke. CT scan and MRI of the brain revealed no acute events No lesions noted on MRI Neurology consultprescribe symptomatic treatment for vertigo and physical therapy on discharge. Continue on meclizine and promethazine PT OT on board. TIA Cannot be excluded given history We will continue stroke prophylaxis with aspirin and atorvastatin Hypertension Blood pressure is significantly above 150 systolic. Initial permissive hypertension on account of possible stroke We will start low-dose amlodipine Possible aortic aneurysm. Echocardiogram revealed dilated aortic sinus Started on metoprolol and atorvastatin CT scan donediscussion in a.m. Appreciate cardiology input History of pulmonary embolism INR 2.1 Continue on warfarin. Paroxysmal atrial tachycardia Noted on monitor Start metoprolol VTE prophylaxistherapeutic on warfarin
[2020-01-09] MEDS: Acetaminophen 325 MG TAB PO PRN (05:21)
[2020-01-09 05:57] LABS: Prothrombin Time 22.3 sec (12.0-14.7)
[2020-01-09] MEDS ORDERED: Hydrochlorothiazide 25 MG TAB PO SCH ×2 (09:00)
[2020-01-09] MEDS: Amlodipine 5 MG TAB PO SCH (10:12)
[2020-01-09] MEDS: Metoprolol Tartrate 50 MG TAB PO SCH (10:12)
[2020-01-09] MEDS: Aspirin 81 mg Enteric Coated Tablet PO SCH (10:12)
[2020-01-09] MEDS: Famotidine 20 MG TAB PO SCH (10:18)
[2020-01-09] MEDS: Meclizine HCl 25 MG TAB PO PRN (10:18)
[2020-01-09 11:57] VITALS: BP 147/96; TEMP 98.2
--- NOTE | 2020-01-09 13:41 | EKG ---
Test Reason : Blood Pressure : / mmHG Vent. Rate : 063 BPM Atrial Rate : 063 BPM P-R Int : 188 ms QRS Dur : 112 ms QT Int : 452 ms P-R-T Axes : 077 -02 042 degrees QTc Int : 462 ms Normal sinus rhythm Nonspecific T wave abnormality Prolonged QT Abnormal ECG Confirmed by RADHA MILLS DO ([id number]), editor city YUDELKA BAINS ([id number]) on 01/09/2020 1:41:03 PM Referred By: Confirmed By:RADHA MILLS DO
--- NOTE | 2020-01-10 02:58 | DIS ---
DATE OF ADMISSION: 01/06/2020 DATE OF DISCHARGE: 01/09/2020 DISCHARGE DIAGNOSES: 1. Benign paroxysmal vertigo. 2. Paroxysmal atrial tachycardia, resolved. 3. Hypertension, improved. 4. Chronic anticoagulation with Coumadin. 5. Hyperlipidemia. CONSULTATIONS: 1. Dr. Babb with Cardiology Service. 2. Dr. Ledesma with Neurology Service. PERTINENT LABORATORY AND X-RAY FINDINGS: Hemoglobin A1c is 6.0. Troponin I negative x3. Total cholesterol 221, triglycerides 74, HDL 50, LDL 156. CBC showed a white blood cell count ranging between 8.5 to 12.1. INR ranged between 2.0 to 2.2. COVID-19 PCR not detected, 01/07/2020. CT angio of the [place] dated 01/06/2020, showed no acute process. MRI of the brain dated 01/07/2020, showed no acute intracranial process. 2D transthoracic echocardiogram dated 01/07/2020, showed ejection fraction of 50% to 55%. Mild mitral and tricuspid regurgitation. Dilation of the aortic root and sinus at 4.[address] angiogram of the chest dated 01/08/2020, showed aortic sinus level 4.9 cm. Ascending thoracic aorta 3.6 cm. Descending thoracic aorta 3.1 cm. HOSPITAL COURSE: The patient was initially admitted after presenting with vertigo and nystagmus. The patient underwent extensive evaluation including neuroimaging studies with brain MRI showing no acute process. CT angiogram of the head and neck also revealed no significant stenosis. The patient received meclizine and IV fluids for symptomatic and supportive management in addition to antiemetics with Zofran. The patient also received Valium and aspirin after concern for potential TIA-like syndrome. The patient was evaluated by the Neurology Service with recommendations to continue management for the vertigo symptoms, which did improve with medical support. The patient also underwent evaluation by echocardiogram showing questionable dilated aortic root. Cardiology consultation was obtained; however, no specific intervention was recommended other than treating a paroxysmal atrial tachycardia, which was noted on telemetry monitoring. The patient received metoprolol 50 mg b.i.d. with overall resolution and heart rates ranging in the 60s for the remainder of the hospital course. Overall, the patient did clinically stabilize with supportive management. Vital signs have remained stable and the patient is tolerating regular oral intake. I have examined the patient at the time of discharge and discussed followup instructions. The patient verbalizes understanding and agreement, ready for discharge on 01/09/2020. DISCHARGE MEDICATIONS: 1. Coumadin 10 mg p.o. daily with goal INR of 2 to 3. 2. Meclizine 25 mg p.o. q.8 hours p.r.n. vertigo. 3. Lipitor 80 mg p.o. daily. 4. Enteric-coated aspirin 81 mg p.o. daily. 5. Metoprolol tartrate 50 mg p.o. b.i.d. 6. Norvasc 5 mg p.o. daily. FOLLOWUP: The patient may follow up with his primary care provider, Dr. Ryan Abel, within 7 days of discharge. CONDITION ON DISCHARGE: Stable. ACTIVITY: Ad-ashli. DIET: Heart healthy. CODE STATUS: Full. DISPOSITION: To home, 01/09/2020. TIME SPENT: Total time preparing and coordinating discharge, 34 minutes. Job ID: [id number]
--- NOTE | 2020-01-11 07:34 | PQF ---
CLINICAL DOCUMENTATION CLARIFICATION FORM: Dear : Bernardo Nath Date / Time: 01/11/2020 07:33 Please exercise your independent, professional judgment in responding to the clarification form. Clinical indicators are provided on the bottom of this form for your review Can you please specify the etiology of patients dizziness and vertigo? Please check appropriate box(es): [ ] TIA [ x ] Benign paraoxysmal vertigo [ ] Acute labyrinthitis [ ] Other diagnosis [ ] Unable to determine Physician Signature: Date/Time: For continuity of documentation, please document condition throughout progress notes and discharge summary. Thank You. To be completed by CDI/Coding staff for physician review: Present Clinical Indicators - Signs / Symptoms / Labs Results and Location in Medical Record [x] developed continuous vertigo...dizziness is described as a sense of rotation HP 01/05 [x] TIA cannot be completely ruled out Consult 01/06 [x] MRI of brain revealed no acute events PN 01/06 [x] vertigo with acute labyrinthitis Consult 01/07 [x] noted to have leftward nystagmus HP 01/05 [x] CT of brain: no acute findings are noted CT of brain 01/05 Present Risk Factors Results and Location in Medical Record [x] 49 years old male HP 01/05 [x] HTN HP 01/05 [x] Hypercholesterolemia Consult 01/07 [x] acute labyrinthitis Consult 01/07 Present Treatments Results and Location in Medical Record [x] CT of brain Collected 01/05 [x] MRI of brain Collected 01/06 [x] Neurology Consult Consult 01/06 [x] Antivert 25mg Oral JUN 28 CDS/Director Of Procurement Signature: Meri Szymanski Phone #: ext [phone] Date/Time: 01/11/2020 07:33 This is a permanent part of the Medical Record [facility]
== END 2020-01-09 14:56 | disposition home or self-care (01) | DRG 149 ==
LOC: ERS 19:00 → 2SE 23:47
PROVIDERS: ADMIT Internal Medicine; ATTEND Internal Medicine
DX: H81.10 Benign paroxysmal vertigo, unspecified ear (principal); I10 Essential (primary) hypertension; I08.1 Rheumatic disorders of both mitral and tricuspid valves; H83.09 Labyrinthitis, unspecified ear; E78.5 Hyperlipidemia, unspecified; E78.00 Pure hypercholesterolemia, unspecified; I77.810 Thoracic aortic ectasia; Z86.711 Personal history of pulmonary embolism; Z79.01 Long term (current) use of anticoagulants; Z86.73 Personal history of transient ischemic attack (TIA), and cerebral infarction without residual deficits; Z86.718 Personal history of other venous thrombosis and embolism
CPT/HCPCS: 36415; 36600; 70496; 70498; 70551; 71275; 80048; 80053; 80061; 83036; 83735; 84484; 85025; 85610; 85730; 87635; 93005; 93306; J3475; Q0162; Q9967; U0003

== ENCOUNTER 2021-09-13 17:00 | Outpatient (CLI) | payer BC | END 2021-09-13 17:01 | disposition home or self-care (01) | LOC: SLEEPLAB 17:00 | PROVIDERS: ATTEND Family Medicine | DX: G47.10 Hypersomnia, unspecified (principal); F51.9 Sleep disorder not due to a substance or known physiological condition, unspecified; R53.83 Other fatigue; E66.9 Obesity, unspecified; G47.00 Insomnia, unspecified; R06.83 Snoring; G47.33 Obstructive sleep apnea (adult) (pediatric); Z68.37 Body mass index [BMI] 37.0-37.9, adult | CPT/HCPCS: 95800 ==